=== PATIENT | male | born 1990 | race Caucasian/White ===

== ENCOUNTER 2016-09-07 13:05 | Emergency (ER) | payer SELFPAY ==
[~2016-09-07] VITALS: Ht 175.3 cm; Wt 72.5 kg
[2016-09-07 13:06] VITALS: BP 116/71; PULSE 72; RESP 18; TEMP 98.1; O2SAT 98
[2016-09-07] MEDS ORDERED: LIDOCAINE 1%/EPINEPHrine 1:100,000 SOLN 20 ML VIAL INFIL ONE (13:30)
[2016-09-07] MEDS ORDERED: TETANUS/DIPHTHERIA TOXOID ADULT 0.5 ML VIAL IM ONE (13:30)
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
== END 2016-09-07 14:58 | disposition home or self-care (01) ==
LOC: NEPC 13:05
DX: S02.40EA Zygomatic fracture, right side, initial encounter for closed fracture (principal); S01.81XA Laceration without foreign body of other part of head, initial encounter; F10.120 Alcohol abuse with intoxication, uncomplicated; F43.10 Post-traumatic stress disorder, unspecified; Z23 Encounter for immunization; Y04.2XXA Assault by strike against or bumped into by another person, initial encounter; Y90.9 Presence of alcohol in blood, level not specified; Y93.9 Activity, unspecified; Y92.9 Unspecified place or not applicable; Y99.9 Unspecified external cause status
CPT/HCPCS: 12011; 70450; 70486; 71010; 90471; 90714